=== PATIENT | female | born 1940 | race Caucasian/White ===

== ENCOUNTER → 2017-03-07 | Outpatient (CLI) | payer MEDICARE, BC ==
[~2017-03-07] MED LIST: AMLO2.5T PO; ASPI-557 PO; CLON0.5T4 PO; GABA-336 PO; ISOS60TA4 PO; LISI40TA4 PO; MAGN30TA2 PO; MELA1TAB8 PO; METO25TA41 PO; MIRA50TA PO; MORP-5 PO; NITR0.4T SL; OMEP40CA52 PO; OXYC-532 PO; OXYC1TAB13 PO; PRAM0.5T12 PO; SULF1TAB42 PO
--- NOTE | 2017-03-07 16:11 | DI ---
Indication: ITS.REASON: M79.81 Nontraumatic hematoma of soft tissue PROCEDURE: CT PELVIS W/O CONTRAST: Encounter: Initial Comparison: None Technique: Axial noncontrast CT imaging through the pelvis with coronal and sagittal two-dimensional reformats. Automated Exposure Control and Iterative Reconstruction dose reducing techniques were utilized. Findings: There is a dense sclerotic lesion in the left superior pubic ramus at the pubic symphysis measuring 1.4 cm in diameter probably representing a bone island. No acute fracture identified. The bladder appears normal. Uterus is surgically absent. No free fluid. The visualized loops of small and large bowel in the pelvis are grossly unremarkable. No adenopathy seen. No free fluid. There is severe fatty atrophy of the right gluteus medius and minimus muscles. There is asymmetric thickening and enlargement of the right tensor fascia eleonora muscle probably due to edema and a small amount of intramuscular hematoma. Impression: No acute fracture. Intramuscular hematoma within the right tensor fascia eleonora. .
== END ==
LOC: IMA 14:21
PROVIDERS: ATTEND Internal Medicine
DX: M79.81 Nontraumatic hematoma of soft tissue (principal)